=== PATIENT | female | born 1990 | race Hispanic/Latino ===

== ENCOUNTER 2019-09-17 10:23 | Outpatient (CLI) | payer OTHER ==
[2019-09-18] MEDS ORDERED: hydrALAZINE 20 MG/ML VIAL SLOW IVP PRN (04:37)
--- NOTE | 2019-09-18 04:37 | PDOC.LDHP ---
Labor and Delivery H&P Chief complaint: contractions HPI: 29yo @ 38.3 weeks presents to L&D with complaint of painful contractions that started 8 hours ago. Pt states contractions were initially 20 minutes apart but now feel q15min. Rates them at 4-5/10 but feels they are worsening. Scheduled for repeat on 09/21. Denies vaginal discharge, LOF , headache, vision changes, or decreased FM. Does note small amount of vaginal spotting when wiping the past few times she went to the bathroom. Current gestational age (weeks): 38 (3) Due date: 09/29/19 Dating criteria: last menstrual period, first trimester ultrasound Grav: 2 Para: 1 OB History Details: Prev in [place] 9 years ago for macrosomia (11.5 lbs) Current complications: gestational diabetes (Uncontrolled - managed with diet) Past Medical History: GDM Current medications: pre- vitamins Previous surgical history: low tranverse CS Allergies/Adverse Reactions: Allergies Allergy/AdvReac Type Severity Reaction Status Date / Time No Known Allergies Allergy Verified 09/18/19 04:09 Social history: none - Physical Exam Vital signs reviewed and normal: yes General: breathing through contractions Heart: RRR Lungs: nonlabored breathing Abdomen: gravid Extremeties: no edema FHT: category 1, variability present [place] contractions every: 4 - small elevations on toco - Vaginal Exam cm dilated: 2 Effacement: 50% Station: -2 - OB Labs Blood type: A RH: positive Antibody Screen: negative HIV: negative RPR: negative HEPSAg: negative 1 hour GCT: positive (150) GBS: negative Rubella: immune Additional Labs: COVID pending - Assessment 29yo presenting with complaint of painful contractions. Some small contractions seen on toco. SVE initially was 2/60/-2 upon arrival and repeat 2 hours later was *.
[2019-09-18] MEDS ORDERED: Promethazine HCl 25 MG/ML VIAL IM SCH (05:00)
[2019-09-18 12:45] LABS: SARS-CoV-2 MS2 Positive; SARS-CoV-2 N Gene Positive; SARS-CoV-2 S Gene Positive; SARS-CoV-2 by NAA DETECTED (NotDetected); SARS-CoV-2 orf1ab Positive
== END 2019-09-17 10:24 | disposition home or self-care (01) ==
LOC: LABBT 10:23
PROVIDERS: ATTEND Obstetrics & Gynecology
DX: U07.1 COVID-19 (principal)
CPT/HCPCS: 87635; U0003

== ENCOUNTER 2019-09-18 03:43 | Inpatient (IN) | payer OTHER ==
[2019-09-18 04:25] VITALS: BMI 39.4
[2019-09-18] MEDS ORDERED: hydrALAZINE 20 MG/ML VIAL SLOW IVP PRN ×3 (05:11→12:11)
--- NOTE | 2019-09-18 05:13 | PDOC.LDHP ---
Labor and Delivery H&P Allergies/Adverse Reactions: Allergies Allergy/AdvReac Type Severity Reaction Status Date / Time No Known Allergies Allergy Verified 09/18/19 04:09 - Assessment L&D H&P 29yo @ 38.3 weeks presents to L&D with complaint of painful contractions that started 8 hours ago. Pt states contractions were initially 20 minutes apart but now feel q15min. Rates them at 4-5/10 but feels they are worsening. Scheduled for repeat on 09/21. Denies vaginal discharge, LOF , headache, vision changes, or decreased FM. Does note small amount of vaginal spotting when wiping the past few times she went to the bathroom. Current gestational age (weeks): 38 (3) Due date: 09/29/19 Dating criteria: last menstrual period, first trimester ultrasound Grav: 2 Para: 1 OB History Details: Prev in [place] 9 years ago for macrosomia (11.5 lbs) Current complications: gestational diabetes (Uncontrolled - managed with diet) Past Medical History: GDM Current medications: pre- vitamins Previous surgical history: low tranverse CS Allergies/Adverse Reactions: Allergies Allergy/AdvReac Type Severity Reaction Status Date / Time No Known Allergies Allergy Verified 09/18/19 04:09 Social history: none - Physical Exam Vital signs reviewed and normal: yes General: breathing through contractions Heart: RRR Lungs: nonlabored breathing Abdomen: gravid Extremeties: no edema FHT: category 1, variability present [place] contractions every: No definitive contractions seen on toco - Vaginal Exam cm dilated: 2 Effacement: 50% Station: -2 - OB Labs Blood type: A RH: positive Antibody Screen: negative HIV: negative RPR: negative HEPSAg: negative 1 hour GCT: positive (150) GBS: negative Rubella: immune Additional Labs: COVID pending - Assessment 29yo presenting with complaint of painful contractions. Some small contractions seen on toco. SVE initially was 2/60/-2. [place] the patient was in early labor. In setting of repeat pt's PCP Dr. Hyman was contacted and elected to proceed with rLTC today.
[2019-09-18] MEDS ORDERED: Promethazine HCl 25 MG/ML VIAL IM SCH (05:15)
[2019-09-18] MEDS ORDERED: Promethazine HCl 25 MG/ML VIAL IM PRN ×2 (06:25→13:37)
[2019-09-18] MEDS ORDERED: Acetaminophen 500 MG TAB PO PRN (06:25)
[2019-09-18] MEDS ORDERED: Butorphanol Tartrate 1 MG/ML VIAL SLOW IVP PRN (06:25)
[2019-09-18] MEDS ORDERED: Docusate 100 MG CAP PO PRN (06:25)
[2019-09-18] MEDS ORDERED: Ondansetron PF 4 MG/2 ML Vial IVP PRN ×3 (06:25→13:37)
[2019-09-18] MEDS ORDERED: Lactated Ringer's 1,000 ML IV SCH (06:30)
[2019-09-18] MEDS ORDERED: Bicitra 30 ML UDCUP PO SCH (06:45)
[2019-09-18] MEDS ORDERED: CEFAZOLIN 2 GM in Premix Bag 1 BAG IVPB SCH (06:45)
[2019-09-18 07:50] LABS: Hemoglobin 12.6 g/dL (12.0-16.0); Mean Corpuscular HGB CONC 33.3 g/dL (32.0-36.0); Mean Corpuscular Hemoglobin 28.6 pg (27.0-31.0); Mean Corpuscular Volume 85.7 fL (78.0-98.0); Mean Platelet Volume 10.4 fL (7.4-10.4); Platelet Count 155 thou/uL (130-400); RBC Distribution Width 14.3 % (11.5-14.5); Red Blood Cell (RBC) Count 4.41 mill/uL (4.20-5.40)
[2019-09-18 08:29] LABS: Syphilis Antibody Nonreactive (Nonreactive); Syphilis Antibody Index 0.04 S/CO (<1.00 Non-Reactive)
[2019-09-18 08:32] LABS: HBSAg Index 0.13 S/CO (0-0.99); Hep B Surf Ag Non-Reactive S/CO (NonReactive)
[2019-09-18] MEDS ORDERED: Bicitra 30 ML UDCUP ONE (09:21)
[2019-09-18] MEDS ORDERED: MORPHINE 5 MG/10 ML PF VIAL ONE (09:38)
[2019-09-18] MEDS ORDERED: PHENYLEPHRINE-NS 100 MCG/ML 10 ML SYRINGE ONE (09:39)
[2019-09-18] MEDS ORDERED: EPHEDRINE 25 MG/5 ML SYRINGE ONE (09:39)
[2019-09-18] MEDS ORDERED: Ondansetron PF 4 MG/2 ML Vial ONE (09:39)
[2019-09-18] MEDS ORDERED: Oxytocin 10 UNITS/ML VIAL ONE (09:39)
[2019-09-18] MEDS ORDERED: Lidocaine 1% (PF) 30 ML VIAL ONE (10:05)
[2019-09-18] MEDS ORDERED: Fentanyl 100 MCG/2 ML VIAL ONE (10:24)
--- NOTE | 2019-09-18 10:27 | PDOC.BPN ---
- Brief Progress Note OBGYN Tong Hooker CS Assist Note Asked to assist Dr Hyman on this Repeat CS at term. Screening Swab was POS for COVID. Vertical skin incision made as repeat. NICU present Vigorous Male NO complications I was certified surgical first assistant for this case. Please see full Op Note Dictation
--- NOTE | 2019-09-18 10:38 | PDOC.OPDEL ---
OB Operative/Delivery Note Delivery Dr/Surgeon: Boogie Assist: Emil Pre-Delivery Diagnosis: active labor (previous CS, declines TOLAC) Weeks gestation: 38 Anesthesia: spinal - Findings A Sex: male - Additional Findings/Plan Placenta delivered: spontaneous findings: low transverse hysterotomy without extension Estimated blood loss: 500ml Compilations/Other Findings: COVID 19 positive on admission Post delivery plan: routine recovery
--- NOTE | 2019-09-18 11:24 | OP ---
DATE OF PROCEDURE: 09/18/2019 PREOPERATIVE DIAGNOSES: 1. Early labor at 38 weeks. 2. Previous section, declines trial of labor. 3. COVID-19 positive. POSTOPERATIVE DIAGNOSES: 1. Early labor at 38 weeks. 2. Previous section, declines trial of labor. 3. COVID-19 positive. PROCEDURE PERFORMED: Repeat low-transverse section. MEATMAN: Norberto Stein MD COMPLICATIONS: None. ANESTHESIA: Spinal per Dr. Ballesteros. ESTIMATED BLOOD LOSS: 500 mL. OPERATIVE FINDINGS: 1. Low-transverse hysterotomy without extension. Normal-appearing uterus, tubes, and ovaries bilaterally. 2. Vertical skin incision. 3. Vigorous male infant, Apgars and weight pending at the time of dictation. 4. Surgical site hemostatic. PROCEDURE IN DETAIL: The patient was taken back to the OR with IV fluids running. Once she was in the OR, spinal anesthesia was obtained. The patient placed in dorsal supine position with a left lateral tilt. Andres catheter was placed using sterile technique. The abdomen and vagina were prepped and draped in normal fashion for section. 2 g of Ancef were administered through the IV. Surgeons were gowned and gloved. Anesthesia was tested and found to be adequate. A vertical skin incision was made through a previous vertical skin incision scar. The skin incision was carried down through the subcutaneous tissue to the fascia, which was incised in the midline. The rectus muscles and peritoneum were bluntly entered and stretched laterally. An Peter O retractor was placed into the abdominal cavity for retraction, visualization, and protection of the wound. A bladder flap was created and dissected away from the planned hysterotomy site. A low-transverse hysterotomy was made with a scalpel, was extended using the Morales maneuver. An amniotomy was performed and clear fluid was noted. The infant was delivered without difficulty through the incision. The nose and mouth were suctioned. The cord was doubly clamped and cut. The baby was handed off to special care nurse in attendance. Cord blood was collected. The placenta was delivered. The uterus was exteriorized, massaged to firm and cleared of clot and debris. The uterus was returned to the abdominal cavity. The hysterotomy was closed using Monocryl suture in a running locked fashion. After the hysterotomy was closed, the right corner had a small area of bleeding, which was controlled with a [id number] stitch with the hysterotomy noted to be hemostatic. The hysterotomy and paracolic gutters were irrigated and suctioned dry. The hysterotomy was inspected again and found to be hemostatic. Peter O retractor was removed from the abdominal cavity. The rectus muscles were inspected and no areas of bleeding were noted. The fascia was reapproximated with PDS suture in a running fashion. The subcutaneous layer was reapproximated with plain gut suture and the skin was closed with 4-0 Monocryl and dressed with Dermabond dressing. The patient tolerated the procedure and there were no complications. Job ID: [id number]
[2019-09-18] MEDS ORDERED: Lanolin Ointment 7 GM TUBE TOP PRN (12:11)
[2019-09-18] MEDS ORDERED: diphenhydrAMINE 25 MG CAP PO PRN (12:11)
[2019-09-18] MEDS ORDERED: Acetaminophen 325 MG TAB PO PRN (12:11)
[2019-09-18] MEDS ORDERED: HYDROcodone/Acetaminophen 5/325 mg Tablet PO PRN ×2 (12:11)
[2019-09-18] MEDS ORDERED: Bisacodyl 10 MG SUPP PR PRN (12:11)
[2019-09-18] MEDS ORDERED: Ketorolac Tromethamine 30 MG/ML VIAL ONE (13:03)
[2019-09-18] MEDS ORDERED: Promethazine HCl 25 MG SUPP PR PRN (13:37)
[2019-09-18] MEDS ORDERED: Ondansetron HCl/PF 4 MG/2 ML Vial IVP PRN (13:37)
[2019-09-18] MEDS ORDERED: HYDROmorphone 2 MG/ML VIAL SLOW IVP PRN (13:37)
[2019-09-18] MEDS ORDERED: Naloxone HCl 0.4 mg/ml Vial IV PRN (13:37)
[2019-09-18] MEDS ORDERED: diphenhydrAMINE 50 MG/ML VIAL IVP PRN (13:37)
[2019-09-18] MEDS ORDERED: Meperidine HCl/PF 25 MG/ML VIAL SLOW IVP PRN (13:37)
[2019-09-18] MEDS ORDERED: Ketorolac Tromethamine 30 MG/ML VIAL IVP PRN (13:37)
[2019-09-18] MEDS ORDERED: L&D-Morphine 4 MG/ML VIAL SLOW IVP PRN (13:37)
[2019-09-18] MEDS ORDERED: Naloxone HCl 0.4 mg/ml Vial IVP PRN ×2 (13:37)
[2019-09-18] MEDS ORDERED: Communication Order-Pharmacy FS SCH (13:45)
[2019-09-18] MEDS ORDERED: Ketorolac Tromethamine 30 MG/ML VIAL IVP SCH (13:45)
[2019-09-18] MEDS ORDERED: Ibuprofen 800 MG TAB PO SCH (14:00)
[2019-09-18] MEDS: Docusate Calcium (SURFAK) 240 MG CAP PO SCH (20:31)
[2019-09-18] MEDS: Diabetic Tussin 200 MG/10 ML UDCUP PO PRN ×2 (20:31→23:47)
[2019-09-19] MEDS: Diabetic Tussin 200 MG/10 ML UDCUP PO PRN ×2 (05:34→09:52)
--- NOTE | 2019-09-19 06:36 | PDOC.PP ---
Post Progress Note Post Day #: 1 Subjective: Doing well PO intake tolerated: yes Flatus: yes Ambulation: yes Vital Signs (12 hours) Temp Pulse Resp BP Pulse Ox 09/19/19 04:00 98.3 F 78 20 127/67 98 09/19/19 00:00 98.8 F 78 20 128/66 98 09/18/19 20:15 100.6 F H 98 20 133/67 98 Weight Weight 209 lb - Physical Examination General: NAD Respiratory: non-labored breathing Abdominal: no distention, appropriately TTP Extremities: negative homans (B) Skin: no rash Neurological: no gross focal deficits Psychiatric: A&Ox3, normal affect Result Diagrams: 09/18/19 07:34 Additional Labs: Post Labs Blood Type A POSITIVE 09/18/19 08:11 Hep Bs Antigen Non-Reactive S/CO (NonReactive) 09/18/19 07:34 (1) COVID-19 virus infection Code(s): U07.1 - COVID-19 Status: Acute (2) delivery delivered Code(s): O82 - ENCOUNTER FOR DELIVERY WITHOUT INDICATION Status: Acute - Assessment/Plan Doing well. POD1 from repeat CS. Skin was sutured (vertical). COVID noted on screening...ASX. Still in couplet care isolation. Doing well.
[2019-09-19] MEDS: Ferrous Sulfate 325 MG TAB PO SCH ×2 (07:15→09:51)
[2019-09-19 07:44] LABS: Hemoglobin 11.7 g/dL (12.0-16.0); Mean Corpuscular Volume 88.2 fL (78.0-98.0); Mean Platelet Volume 10.3 fL (7.4-10.4); Platelet Count 140 thou/uL (130-400); RBC Distribution Width 14.3 % (11.5-14.5); Red Blood Cell (RBC) Count 3.89 mill/uL (4.20-5.40)
[2019-09-19] MEDS: HYDROcodone/Acetaminophen 5/325 mg Tablet PO PRN ×4 (08:26→20:44)
[2019-09-19] MEDS: Prenatal Vitamin 1 TAB PO SCH (08:27)
[2019-09-19] MEDS: Docusate Calcium (SURFAK) 240 MG CAP PO SCH ×2 (08:27→20:44)
[2019-09-19] MEDS ORDERED: Adacel (T-DAP) 0.5 ML SYRINGE IM ONE (12:11)
[2019-09-19] MEDS: Ibuprofen 800 MG TAB PO SCH ×2 (14:05→22:09)
[2019-09-19 16:02] VITALS: TEMP 98.3
[2019-09-19] MEDS: Simethicone Chewable 80 MG TAB PO PRN (22:16)
[2019-09-20] MEDS: HYDROcodone/Acetaminophen 5/325 mg Tablet PO PRN ×2 (02:22→07:45)
[2019-09-20] MEDS: Simethicone Chewable 80 MG TAB PO PRN ×2 (02:22→05:37)
[2019-09-20] MEDS: Ibuprofen 800 MG TAB PO SCH (05:38)
[2019-09-20] MEDS: Ferrous Sulfate 325 MG TAB PO SCH ×2 (06:12→08:02)
[2019-09-20] MEDS: Docusate Calcium (SURFAK) 240 MG CAP PO SCH (07:44)
[2019-09-20] MEDS: Prenatal Vitamin 1 TAB PO SCH (07:44)
[2019-09-20 08:01] VITALS: BP 126/72
--- NOTE | 2019-09-20 08:15 | PDOC.PP ---
Post Progress Note Post Day #: 2 Subjective: doing well, very rare cough sx, no fever or chills, no sob, pain controlled-- feeling much better than Sat PO intake tolerated: yes Flatus: yes Ambulation: yes Vital Signs (12 hours) Temp Pulse Resp BP Pulse Ox 09/20/19 07:56 98.3 F 74 20 126/72 98 09/20/19 04:00 98.3 F 75 20 127/72 98 09/20/19 00:00 97.9 F 77 20 133/77 98 Weight Weight 209 lb - Physical Examination General: NAD Respiratory: non-labored breathing (speaking in full sentences) Skin: CS incision dry & intact Psychiatric: normal affect Result Diagrams: 09/19/19 07:06 Additional Labs: Post Labs Blood Type A POSITIVE 09/18/19 08:11 Hep Bs Antigen Non-Reactive S/CO (NonReactive) 09/18/19 07:34 (1) Term delivered Code(s): O80 - ENCOUNTER FOR FULL-TERM UNCOMPLICATED DELIVERY Status: Acute (2) COVID-19 virus infection Code(s): U07.1 - COVID-19 Status: Acute (3) delivery delivered Code(s): O82 - ENCOUNTER FOR DELIVERY WITHOUT INDICATION Status: Acute - Assessment/Plan POD2 -SP RCS for declines TOLAC, doing well, post op goals met COVID 19 -Day 3 of mild symptoms/positive test -on prophylactic lovenox, reviewed risk and benefits and unclear benefits w mild disease, CS and early ambulation, pt would like to continue for 7 days total and will self admin at home. -mild respiratory symptoms, no si/sx of worsening disease DC today.
[2019-09-20] MEDS ORDERED: Enoxaparin Sodium 40 MG/0.4 ML SYRINGE SC SCH (09:00)
== END 2019-09-20 14:25 | disposition home or self-care (01) | DRG 786 ==
LOC: L&D/OP 03:43 → L&D 08:00
PROVIDERS: ADMIT Obstetrics & Gynecology; ATTEND Obstetrics & Gynecology
PROC: 10D00Z1 Extraction of Products of Conception, Low, Open Approach (ICD-10-PCS; principal; 2019-09-18)
PROC: 8E0ZXY6 Isolation (ICD-10-PCS; 2019-09-18)
DX: O34.211 Maternal care for low transverse scar from previous cesarean delivery (principal); U07.1 COVID-19; O98.52 Other viral diseases complicating childbirth; Z3A.38 38 weeks gestation of pregnancy; Z37.0 Single live birth; O24.420 Gestational diabetes mellitus in childbirth, diet controlled
CPT/HCPCS: 36415; 51702; 85027; 86780; 86850; 86900; 86901; 87340; 87635; 99285; J0595; J0690; J1650; J1885; J2001; J2274; J2405; J2550; J2590; J3010; U0003